=== PATIENT | male | born 1990 | race Caucasian/White ===

== ENCOUNTER 2020-07-22 00:40 | Emergency (ER) | payer SELFPAY ==
[2020-07-22 01:00] VITALS: BP 164/91; PULSE 96; RESP 16; TEMP 36.8; O2SAT 94; BMI 23.7
[2020-07-22] MEDS: lidocaine 1% INJ 20 mL 3 ML INTRADERMA (01:20)
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
[2020-07-22] MEDS: ibuprofen 800 mg tablet PO (01:45)
[2020-07-22 02:05] VITALS: BP 164/91; PULSE 94; RESP 16; O2SAT 96
--- NOTE | 2020-07-28 16:45 | PC.NURSE ---
Patient returned to ER to have sutures removed. 4 sutures removed from lac above right eyebrow.
== END 2020-07-22 02:05 | disposition home or self-care (01) ==
PROVIDERS: Emergency Provider Nurse Practitioner Family
DX: S01.81XA Laceration without foreign body of other part of head, initial encounter (principal); Y04.2XXA Assault by strike against or bumped into by another person, initial encounter
CPT/HCPCS: 12013; 12345; 99281; 99282

== ENCOUNTER 2021-10-28 23:51 | Emergency (ER) | payer SELFPAY ==
[2021-10-29] VITALS: BP 171/97; PULSE 110; RESP 18; TEMP 36.4; O2SAT 94; BMI 36.6
--- NOTE | 2021-10-29 00:11 | W.ED.GENADLT ---
HPI - General Adult General: Chief complaint: General Medical Stated complaint: Hernia-Belly Button Time Seen by Provider: 10/28/21 23:52 Source: patient Mode of arrival: ambulatory Limitations: no limitations History of Present Illness: 31-year-old male states that he has noticed a hernia in his umbilicus over the last 1 to 2 weeks. He states he went to get it checked out she had not noticed it before he denies any pain at the site he states he able to push it back in himself he has had no vomiting no diarrhea denies any fevers denies any injuries. Associated symptoms: Deny chest pain, dyspnea, headache(s), nausea, rash or vomiting Review of Systems Const: Denies: fever(s), chills, body aches or change in appetite Eyes: Denies: blurry vision or eye discomfort ENMT: Denies: throat pain or dental pain Card: Denies: chest pain Resp: Denies: dyspnea GI: Denies: abdominal pain, nausea, vomiting or diarrhea : Denies: dysuria Musc: Denies: neck pain or back pain Skin/Breast: Denies: rash Neuro: Denies: headache(s) Psych: Denies: depression Boy/Lymph: Denies: easy bruising All/Imm: Denies: urticaria PFSH ED PFSH: Medical History No pertinent past medical history Social History Smoking and tobacco status: current every day smoker Physical Exam Const: COMMON NORMALS: no acute distress, patient oriented x3 and healthy appearing HENMT: COMMON NORMALS: normocephalic and atraumatic HEAD & SCALP: normocephalic and atraumatic Eye: COMMON NORMALS: Equal, round and reactive pupils present and EOMs intact bilaterally PUPIL: Yes Equal, round and reactive pupils present Neck/C-Spine: COMMON NORMALS: full ROM and supple Chest: COMMONS NORMALS: normal inspection of the chest and normal palpation of entire chest wall Resp: COMMON NORMALS: normal respiratory effort, No retractions, No use of accessory muscles and clear to auscultation bilaterally AUSCULTATION: clear to auscultation bilaterally Cardio: COMMON NORMALS: regular rate, regular rhythm and No murmurs present (Cardio) RATE: regular rate RHYTHM: regular rhythm GI: COMMON NORMALS: Normal to inspection, nondistended, normoactive bowel sounds present, Soft to palpation, non-tender and no masses PALPATION: Yes Soft to palpation OTHER: Umbilical hernia is palpated to very easily reduced no tenderness on exam Extremity: COMMON NORMALS: normal to inspection and full ROM Neuro: COMMON NORMALS: patient oriented x3, moves all extremities and no focal motor deficits Psych: COMMON NORMALS: mental status grossly normal, Normal thought process present and cooperative THOUGHT PROCESS: Normal thought process present Skin: COMMON NORMALS: no rashes or lesions noted and no wounds GENERAL SKIN EXAM: no rashes or lesions noted Course Vital Signs: Vital signs: Vital Signs Temperature 97.6 F 10/29/21 00:00 Pulse Rate 110 H 10/29/21 00:00 Respiratory Rate 18 10/29/21 00:00 Blood Pressure 171/97 10/29/21 00:00 Pulse Oximetry 94 10/29/21 00:00 MDM - General Adult Medical Decision Making Patient presents with an umbilical hernia exam here is benign it is easily reduced no signs of strangulation he has had no pain he is stable for discharge we will get him follow-up with surgery he is return if worsening he understands agrees to plan. Discharge Plan Discharge Patient Disposition: Home Clinical Impression: Hernia, umbilical Condition: Stable Prescriptions: No Action No Known Home Medications 0RF methylprednisolone [Medrol (Wood)] 4 mg tablets,dose pack See Rx Instructions PO PER PKG DIR 5 Days Qty: 21 0RF Rx Instructions: PO PER PKG DIR triamcinolone acetonide 0.1 % cream 1 applic topical BID Qty: 80 0RF Discharge Orders: Discharge ED (Routine); Ordered 10/29/21 Ordered By: Jorge Roman Referrals: Joe Farmer MD [Physician] - 1-3 days Discharge Diet: Advance as tolerated Discharge Activity: Resume usual activity Patient Instructions: Umbilical Hernia (ED) Coding Level of Care Code ED Compound Coating Machine Offbearer for Severo Paredes
[2021-10-29 00:13] VITALS: PULSE 98; RESP 18; O2SAT 96
--- NOTE | 2021-10-31 13:52 | DCPLANNER ---
Addendum entered by Mayela Stokes 11/16/21 20:19: Patient had a follow up appointment scheduled with general surgery - patient did attend appointment. Addendum entered by Mayela Stokes 11/01/21 08:48: Patient has a follow up appointment scheduled for Thursday, November 11, 2021 at 8:[address] Farmer at general surgery. Clinic will call patient with appointment information. Original Note: manager steel had message to schedule a follow up appointment for patient with Dr. Farmer at General Surgery. manager steel sent patients information to the front office staff at general surgery. Patients information will be printed and reviewed. Clinic will call patient with appointment information.
== END 2021-10-29 00:25 | disposition home or self-care (01) ==
PROVIDERS: Emergency Provider Emergency Medicine
DX: K42.9 Umbilical hernia without obstruction or gangrene (principal); F17.200 Nicotine dependence, unspecified, uncomplicated
CPT/HCPCS: 99281

== ENCOUNTER 2021-11-23 20:46 | Emergency (ER) | payer SELFPAY ==
[2021-11-23] VITALS (7 sets, daily range): BP systolic 133–160; BP diastolic 86–106; PULSE 86–101; RESP 16–18; TEMP 36.7; O2SAT 92–97; BMI 31.2
--- NOTE | 2021-11-23 21:05 | ED_ITS ---
Documented by User: CHECO David 11/23/21 22:21 HPI - Abdominal Pain General: Chief Complaint: Abdominal Pain Stated Complaint: hernia pain Time Seen by Provider: 11/23/21 21:01 History of Present Illness: Patient is a 31-year-old male comes to the ED with umbilical abdominal pain. Patient has a umbilical hernia that has been going on now for several weeks. He was scheduled to have surgery to fix umbilical hernia on SundayNovember 21. He did not go to his surgery because he did not have insurance or money to pay for it. Today he woke up and he started having pain in his umbilical region for the first time. This is the first time he said he has had any pain with his umbilical hernia. He rates the pain a 10 out of 10. Denies any nausea or vomiting. Associated Symptoms: Denies chills, constipation, diarrhea, dysuria, fever(s), hematochezia, hematuria, nausea and vomiting Review of Systems Const: Denies: fever(s), chills or fatigue Eyes: Denies: change in vision or eye discomfort ENMT: Denies: throat pain, odynophagia, nasal discharge or nasal congestion Card: Denies: chest pain, palpitations, edema, swelling of feet/ankles, dyspnea on exertion or orthopnea Resp: Denies: dyspnea, productive cough or non-productive cough GI: Reports: abdominal pain (Umbilical hernia pain); Denies: nausea, vomiting, diarrhea, constipation or hematochezia : Denies: flank pain, difficulty urinating, dysuria or hematuria Musc: Denies: neck pain, back pain or extremity swelling Skin/Breast: Denies: rash or new lesions Neuro: Denies: headache(s), numbness in extremities or weakness in extremities [facility] ED PFSH: Medical History Pyloric stenosis, congenital Surgical History History of surgery pyloromyotomy Social History Smoking and tobacco status: current every day smoker Physical Exam Const: COMMON NORMALS: patient oriented x3 and alert GENERAL APPEARANCE: cooperative HENMT: COMMON NORMALS: normocephalic HEAD & SCALP: normocephalic MOUTH: Normal oral and palatal mucosa present THROAT: posterior oropharynx normal and uvula midline Neck/C-Spine: COMMON NORMALS: supple GENERAL: Yes normal visual inspection Resp: COMMON NORMALS: normal respiratory effort, No retractions, No use of accessory muscles and clear to auscultation bilaterally AUSCULTATION: clear to auscultation bilaterally Cardio: COMMON NORMALS: regular rate, regular rhythm, S1 normal heart sound present, S2 normal heart sound present, No gallops present (Cardio), No clicks present (Cardio), No murmurs present (Cardio) and Peripheral pulses 2+ throug hout RATE: regular rate RHYTHM: regular rhythm HEART SOUNDS: S1 normal heart sound present and S2 normal heart sound present PERIPHERAL PULSES: Peripheral pulses 2+ throughout GI: COMMON NORMALS: Normal to inspection, nondistended, normoactive bowel sounds present, Soft to palpation and no masses PALPATION: Yes Soft to palpation, Yes Tenderness to palpation present (GI) (Umbilical tenderness) and Yes Hernia present umbilical (Erythema and tenderness) : COMMON NORMALS: Yes no CVA tenderness BLADDER/KIDNEY EXAM: Yes no CVA t enderness Back/Pelvis: COMMON NORMALS: no CVA tenderness Extremity: COMMON NORMALS: normal to inspection Neuro: COMMON NORMALS: patient oriented x3 SENSORIUM/ORIENTATION: Yes alert GAIT: Yes Normal gait present Skin: GENERAL SKIN EXAM: dry skin Course Vital Signs: Vital signs: Vital Signs Temperature 98.1 F 11/23/21 20:56 Pulse Rate 96 11/23/21 20:56 Respiratory Rate 18 11/23/21 21:29 Blood Pressure 160/106 11/23/21 20:56 Pulse Oximetry 95 11/23/21 21:29 MDM - Abdominal Pain Medical Decision Making Patient is a 31-year-old male comes to the ED with umbilical hernia pain. Patient has had an umbilical hernia for several weeks now but today it started becoming painful. He was scheduled to have surgery to fix the umbilical hernia on Sunday, November 21 but he did not go since he did not have insurance or money to pay for it. Vitals are stable. Exam of patient shows an umbilical hernia that very tender upon palpation. Dr. Roman was evaluating patient with me as well and I ordered some IV pain meds and labs. Dr. Roman manually reduced hernia and patient was put in an abdominal binder. A order was placed with case management for patient be referred to general surgery. Patient was sent home with prescription for pain meds and nausea meds. He was stable for discharge home and given strict return to ED precautions. Lab Data I reviewed the patient's lab results. : 11/23/21 21:24 11/23/21 21:24 Labs/Radiology: Laboratory Results WBC 13.6 10^3/uL (4.0-10.0) H 11/23/21 21:24 RBC 5.97 10^6/uL (4.1-5.3) H 11/23/21 21:24 Hgb 16.6 g/dL (11.7-16.6) 11/23/21: Hct 52.6 % (42.0-52.0) H 11/23/21: MCV 88.1 fl (80-94) 11/23/21 21: MCH 27.8 pg (28.0-34.0) L 11/23/21: MCHC 31.6 g/dL (30.0-36.0) 11/23/21: RDW 14.1 % (12.1-15.1) 11/23/21: Plt Count 223 10^3/cmm (130-400) 11/23/21 21: MPV 11.8 fL (7.4-10.4) H 11/23/21 21:24 Neut % (Auto) 63.0 % 11/23/21 21: Lymph % (Auto) 23.4 % 11/23/21: [place] % (Auto) 8.3 % 11/23/21: Eos % (Auto) 4.2 % 11/23/21 21: Baso % (Auto) 0.7 % 11/23/21: Neut # (Auto) 8.58 10^3/uL (1.8-7.7) H 11/23/21: Lymph # (Auto) 3.2 10^3/uL (0.8-4.8) 11/23/21: [place] # (Auto) 1.1 10^3/uL (0.2-0.9) H 11/23/21 21:24 Eos # (Auto) 0.6 10^3/uL (0.0-0.8) 11/23/21 21:24 Baso # (Auto) 0.1 10^3/uL (0.0-0.1) 11/23/21 21:24 Nucleated RBC % (auto) 0 % 11/23/21 21:24 Nucleated RBCs # 0.0 /100WBC 11/23/21 21:24 Sodium Cancelled 11/23/21 21:24 Potassium Cancelled 11/23/21 21:24 Chloride Cancelled 11/23/21 21:24 Carbon Dioxide Cancelled 11/23/21 21:24 Anion Gap Cancelled 11/23/21 21:24 BUN Cancelled 11/23/21 21:24 Creatinine Cancelled 11/23/21 21:24 GFR Calculation Cancelled 11/23/21 21:24 Glucose Cancelled 11/23/21 21:24 Calculated Osmolality Cancelled 11/23/21 21:24 Calcium Cancelled 11/23/21 21:24 Total Bilirubin Cancelled 11/23/21 21:24 AST Cancelled 11/23/21 21:24 ALT Cancelled 11/23/21 21:24 Alkaline Phosphatase Cancelled 11/23/21 21:24 Total Protein Cancelled 11/23/21 21:24 Albumin Cancelled 11/23/21 21:24 Globulin Cancelled 11/23/21 21:24 Lipase Cancelled 11/23/21 21:24 Discharge Plan Discharge Patient Disposition: Home Clinical Impression: Umbilical hernia Qualifiers: Obstruction and gangrene presence: without obstruction or gangrene Qualified Code(s): K42.9 - Umbilical hernia without obstruction or gangrene Condition: Stable Prescriptions: New hydrocodone-acetaminophen 5-325 mg tablet 1 tab PO Q6H PRN (Reason: pain) Qty: 14 0RF ondansetron 4 mg tablet,disintegrating 4 mg PO Q6H PRN (Reason: nausea and vomiting) Qty: 14 0RF No Action methylprednisolone [Medrol (Wood)] 4 mg tablets,dose pack See Rx Instructions PO PER PKG DIR 5 Days Qty: 21 0RF Rx Instructions: PO PER PKG DIR triamcinolone acetonide 0.1 % cream 1 applic topical BID Qty: 80 0RF Discharge Orders: Discharge ED (Routine); Ordered 11/23/21 Ordered By: Jorge Roman Discharge Diet: Advance as tolerated Discharge Activity: Resume usual activity Patient Instructions: Umbilical Hernia (ED), Opioid Safety Coding Level of Care Code ED Advisor Advocate Angel Co Founder for Severo Fwflorentino Exam Comprehensive Documented by User: Jorge Roman MD 11/23/21 22:24 HPI - Abdominal Pain General: Chief Complaint: Abdominal Pain Stated Complaint: hernia pain Time Seen by Provider: 11/23/21 21:01 [facility] ED PFSH: Medical History Pyloric stenosis, congenital Surgical History History of surgery pyloromyotomy Social History Smoking and tobacco status: current every day smoker Course Vital Signs: Vital signs: Vital Signs Temperature 98.1 F 11/23/21 20:56 Pulse Rate 96 11/23/21 20:56 Respiratory Rate 18 11/23/21 21:29 Blood Pressure 160/106 11/23/21 20:56 Pulse Oximetry 95 11/23/21 21:29 MDM - Abdominal Pain Medical Decision Making Patient is a 31-year-old male comes to the ED with umbilical hernia pain. Patient has had an umbilical hernia for several weeks now but today it started becoming painful. He was scheduled to have surgery to fix the umbilical hernia on Sunday, November 21 but he did not go since he did not have insurance or money to pay for it. Vitals are stable. Exam of patient shows an umbilical hernia that very tender upon palpation. Dr. Roman was evaluating patient with me as well and I ordered some IV pain meds and labs. Dr. Roman manually reduced hernia and patient was put in an abdominal binder. A order was placed with case management for patient be referred to general surgery. Patient was sent home with prescription for pain meds and nausea meds. He was stable for discharge home and given strict return to ED precautions. I saw patient with above midlevel his umbilical hernia was easily reduced he stable for discharge and is to follow back up with Dr. Farmer. Lab Data : 11/23/21 21:24 11/23/21 21:24 Labs/Radiology: Laboratory Results WBC 13.6 10^3/uL (4.0-10.0) H 11/23/21 21:24 RBC 5.97 10^6/uL (4.1-5.3) H 11/23/21 21:24 Hgb 16.6 g/dL (11.7-16.6) 11/23/21 21:24 Hct 52.6 % (42.0-52.0) H 11/23/21 21:24 MCV 88.1 fl (80-94) 11/23/21 21:24 MCH 27.8 pg (28.0-34.0) L 11/23/21 21:24 MCHC 31.6 g/dL (30.0-36.0) 11/23/21 21:24 RDW 14.1 % (12.1-15.1) 11/23/21 21:24 Plt Count 223 10^3/cmm (130-400) 11/23/21 21:24 MPV 11.8 fL (7.4-10.4) H 11/23/21 21:24 Neut % (Auto) 63.0 % 11/23/21 21:24 Lymph % (Auto) 23.4 % 11/23/21 21:24 [place] % (Auto) 8.3 % 11/23/21 21:24 Eos % (Auto) 4.2 % 11/23/21 21:24 Baso % (Auto) 0.7 % 11/23/21 21:24 Neut # (Auto) 8.58 10^3/uL (1.8-7.7) H 11/23/21 21:24 Lymph # (Auto) 3.2 10^3/uL (0.8-4.8) 11/23/21 21:24 [place] # (Auto) 1.1 10^3/uL (0.2-0.9) H 11/23/21 21:24 Eos # (Auto) 0.6 10^3/uL (0.0-0.8) 11/23/21 21:24 Baso # (Auto) 0.1 10^3/uL (0.0-0.1) 11/23/21 21:24 Nucleated RBC % (auto) 0 % 11/23/21 21:24 Nucleated RBCs # 0.0 /100WBC 11/23/21 21:24 Sodium Cancelled 11/23/21 21:24 Potassium Cancelled 11/23/21 21:24 Chloride Cancelled 11/23/21 21:24 Carbon Dioxide Cancelled 11/23/21 21:24 Anion Gap Cancelled 11/23/21 21:24 BUN Cancelled 11/23/21 21:24 Creatinine Cancelled 11/23/21 21:24 GFR Calculation Cancelled 11/23/21 21:24 Glucose Cancelled 11/23/21 21:24 Calculated Osmolality Cancelled 11/23/21 21:24 Calcium Cancelled 11/23/21 21:24 Total Bilirubin Cancelled 11/23/21 21:24 AST Cancelled 11/23/21 21:24 ALT Cancelled 11/23/21 21:24 Alkaline Phosphatase Cancelled 11/23/21 21:24 Total Protein Cancelled 11/23/21 21:24 Albumin Cancelled 11/23/21 21:24 Globulin Cancelled 11/23/21 21:24 Lipase Cancelled 11/23/21 21:24 Discharge Plan Discharge Patient Disposition: Home Clinical Impression: Umbilical hernia Qualifiers: Obstruction and gangrene presence: without obstruction or gangrene Qualified Code(s): K42.9 - Umbilical hernia without obstruction or gangrene Condition: Stable Prescriptions: New hydrocodone-acetaminophen 5-325 mg tablet 1 tab PO Q6H PRN (Reason: pain) Qty: 14 0RF ondansetron 4 mg tablet,disintegrating 4 mg PO Q6H PRN (Reason: nausea and vomiting) Qty: 14 0RF No Action methylprednisolone [Medrol (Wood)] 4 mg tablets,dose pack See Rx Instructions PO PER PKG DIR 5 Days Qty: 21 0RF Rx Instructions: PO PER PKG DIR triamcinolone acetonide 0.1 % cream 1 applic topical BID Qty: 80 0RF Discharge Orders: Discharge ED (Routine); Ordered 11/23/21 Ordered By: Jorge Roman Discharge Diet: Advance as tolerated Discharge Activity: Resume usual activity Patient Instructions: Umbilical Hernia (ED), Opioid Safety Coding Level of Care Code ED Advisor Advocate Angel Co Founder for Chg Fwd Exam Comprehensive
[2021-11-23 21:28] LABS: Basophils # 0.1 10^3/uL (0.0-0.1); Basophils % 0.7 %; Eosinophils # 0.6 10^3/uL (0.0-0.8); Eosinophils % 4.2 %; Hematocrit 52.6 % (42.0-52.0); Hemoglobin 16.6 g/dL (11.7-16.6); Lymphocytes # 3.2 10^3/uL (0.8-4.8); Lymphocytes % 23.4 %; Mean Corpuscular HGB Conc 31.6 g/dL (30.0-36.0); Mean Corpuscular Hemoglobin 27.8 pg (28.0-34.0); Mean Corpuscular Volume 88.1 fl (80-94); Mean Platelet Volume 11.8 fL (7.4-10.4); Monocytes # 1.1 10^3/uL (0.2-0.9); Monocytes % 8.3 %; Neutrophils # 8.58 10^3/uL (1.8-7.7); Nucleated Red Blood Cells % 0 %; Platelet Count 223 10^3/cmm (130-400); Red Blood Count 5.97 10^6/uL (4.1-5.3); Red Cell Distribution Width 14.1 % (12.1-15.1); White Blood Count 13.6 10^3/uL (4.0-10.0)
[2021-11-23] MEDS: LORazepam 2 mg/mL INJ 1 mL IVP (21:29)
[2021-11-23] MEDS: HYDROmorphone 1 mg/mL INJ 1 mL IVP (21:29)
--- NOTE | 2021-11-23 22:28 | PC.NURSE ---
Abd binder applied as ordered
[2021-11-23 23:20] LABS: Alanine Aminotransferase 43 U/L (0-41); Alkaline Phosphatase 113 IU/L (40-130); Anion Gap 13.1 (5-19); Aspartate Amino Transferase 26 U/L (0-40); Blood Urea Nitrogen 21 mg/dL (6-20); Carbon Dioxide 26 mmol/L (22-29); Chloride 104 mmol/L (98-107); Globulin 2.9 g/dL (1.3-4.6); Glomerular Filtration Rate 77.1 mL/min (90-130); Glucose 103 mg/dL (65-115); Osmolality Calculated 291 mOsm/kg (285-295); Potassium 4.1 mmol/L (3.5-5.1); Sodium 139 mmol/L (136-145); Thyroid Stimulating Hormone 2.07 uIU/mL (0.27-4.20); Total Bilirubin 0.2 mg/dL (0.15-1.2); Total Protein 6.9 g/dL (6.6-8.7)
--- NOTE | 2021-11-24 12:28 | DCPLANNER ---
Addendum entered by Mayela Stokes 12/01/21 15:48: client portfolio manager received the following message from general surgery regarding follow up appointment. Patient was seen With Dr. Boogie 11/11 for Hernia. We plan to do Umbical hernia repair however patient has to follow up with Financial assistance. I believe they tried to get ahold of him and are awaiting his call. We sent message to FA to follow up on this as well. Thank you Original Note: client portfolio manager had message to schedule a follow up appointment for patient with general surgery. client portfolio manager sent patients information to the front office staff at general surgery. Patients information will be printed and reviewed. Clinic will call patient with appointment information.
== END 2021-11-23 23:15 | disposition home or self-care (01) ==
PROVIDERS: Emergency Provider Physician Assistant
DX: K42.9 Umbilical hernia without obstruction or gangrene (principal); F17.200 Nicotine dependence, unspecified, uncomplicated
CPT/HCPCS: 80053; 84443; 85025; 96374; 96375; 99284; J1170; J2060

== ENCOUNTER 2022-01-05 06:42 | Day surgery (SDC) | payer MEDICAID, SELFPAY ==
[2021-12-30 09:32] VITALS: BMI 31.3
--- NOTE | 2022-01-02 08:24 | P.ANESASSM_ITS ---
Pre-Anesthetic Assessment Height/Weight: Height 1.83 m Weight 104.78 kg Operation Date: 01/02/22 08:10 Proposed Procedures p Umbilical Hernia Repair(Not Applicable) - Joe Farmer MD GI Umbilical hernia Hx of pyloric stenosis Medications/Allergies Home Medications Medication Instructions Recorded Confirmed Last Taken Type No Known Home Medications 12/30/21 12/30/21 Unknown History Allergies Allergy/AdvReac Type Severity Reaction Status Date / Time No Known Allergies Allergy Verified 12/30/21 09:25 [facility] Anesthesia Medical History Pyloric stenosis, congenital Surgical History History of surgery pyloromyotomy Social History Smoking and tobacco status: current every day smoker Data Anesthesia Cardiac Studies: No Data to Display
[2022-01-05] VITALS (17 sets, daily range): BP systolic 102–144; BP diastolic 59–90; PULSE 68–93; RESP 16–22; TEMP 36.2–36.5; O2SAT 91–98
--- NOTE | 2022-01-05 07:11 | W.PM.OPSFHP ---
Same Day Surgery H&P Indication for Procedure/HPI DATE OF PROCEDURE: January 05, 2022 CHIEF COMPLAINT/INDICATIONFOR SURGICAL PROCEDURE: umbilical hernia repair PREOP DIAGNOSIS: Umbilical hernia PLANNED PROCEDURE: Operation Date: 01/05/22 08:25 Proposed Procedures p Umbilical Hernia Repair(Not Applicable) - Joe Farmer MD Medications/Allergies* Home Medications Medication Instructions Recorded Confirmed Type No Known Home Medications 12/30/21 12/30/21 History Allergies/Adverse Reactions Allergy/AdvReac Type Severity Reaction Status Date / Time No Known Allergies Allergy Verified 01/05/22 07:07 Pertinent History/Comorbid Conditions* Medical History (Updated 11/23/21 @ 21:42 by Jorge Roman MD) Pyloric stenosis, congenital Surgical History (Updated 11/11/21 @ 08:47 by Joe Farmer MD) History of surgery pyloromyotomy Social History Smoking and tobacco status: current every day smoker Pertinent Exam Findings alert, oriented x 3 and regular rate & rhythm Recommendations Surgery/Procedure today Coding Level of Care Code Acute International Project Engineer for Severo Paredes
[2022-01-05] MEDS: sodium chloride 0.9% 1,000 ML 30 ML IV (07:25)
--- NOTE | 2022-01-05 07:41 | ANES.PREANE2 ---
Pre-Anesthetic Assessment Height/Weight: Height 1.83 m Weight 104.78 kg Temp Pulse Resp BP Pulse Ox 97.3 F L 93 18 144/90 97 01/05/22 07:07 01/05/22 07:07 01/05/22 07:07 01/05/22 07:07 01/05/22 07:07 Preop Diagnosis: Umbilical hernia Operation Date: 01/05/22 08:25 Proposed Procedures p Umbilical Hernia Repair(Not Applicable) - Joe Farmer MD Familial anesthetic complications: None Was Beta Jose taken within 24 hours: N/A Was Clonidine taken within 24 hours: N/A Last intake: Intake Last Liquid Date 01/04/22 Last Liquid Time 20:30 Last Solid Date 01/04/22 Last Solid Time 20:30 Social Tobacco and No alcohol Exam alert, oriented x 3 and regular rate & rhythm Airway Submandibular: within normal limits Cervical ROM: within normal limits Mallampati: Class II Dentition: chipped Pulmonary Chronic Obstructive Pulmonary Disease Metabolic Morbid Obesity Anesthetic Plan ASA status: 2 Anesthesia: General Medications/Allergies Home Medications Medication Instructions Recorded Confirmed Last Taken Type No Known Home Medications 12/30/21 12/30/21 Unknown History Allergies Allergy/AdvReac Type Severity Reaction Status Date / Time No Known Allergies Allergy Verified 01/05/22 07:07 Current Medications Generic Name Dose Route Start Last Admin Trade Name Freq PRN Reason Stop Dose Admin Sodium Chloride 1,000 mls @ 30 mls/hr 01/05/22 07:00 01/05/22 07:25 Sodium Chloride 0.9% IV 01/06/22 06:59 30 mls/hr .Q24H ERICK Administration PFSH Anesthesia Medical History Pyloric stenosis, congenital Surgical History History of surgery pyloromyotomy Social History Smoking and tobacco status: current every day smoker Data Anesthesia Cardiac Studies: No Data to Display
--- NOTE | 2022-01-05 08:54 | PM.OP ---
Operative Report Date of procedure: January 05, 2022 Pre-op diagnosis: Incarcerated umbilical hernia Post-op diagnosis: Incarcerated umbilical hernia containing omentum Procedure done: Open primary repair of incarcerated umbilical hernia measuring 2 cm Pathology: none sent Surgeon: Joe Farmer Anesthesia: General Condition: stable Disposition: PACU Procedure: The patient was taken to the operating room and intubated under general anesthesia after IV antibiotic had been administered. The abdomen was prepped and draped in a sterile manner. A 2 cm infraumbilical curvilinear incision was made using a 15 blade, hernia sac was dissected free using electrocautery and hemostats. The hernial sac was excised and omentum was reduced into the peritoneal cavity. Interrupted sutures using 0 Vicryl was used to close the hernia defect without any tension. The subcutaneous tissue was approximated using 3-0 Vicryl and skin was closed using running subcuticular 4-0 Monocryl sutures. Surgical glue was applied and 10 mL of 0.5% Marcaine was infiltrated around the incision. A 2 x 2 gauze was then placed within the umbilicus and sterile dressings are applied. The patient was extubated and transferred to recovery room in stable condition.
[2022-01-05] MEDS: fentaNYL 50 mcg/mL INJ 2mL IVP ×2 (09:05→09:16)
[2022-01-05] MEDS: HYDROmorphone 1 mg/mL INJ 1 mL 0.5 MG IVP ×2 (09:25→09:35)
[2022-01-05] MEDS: HYDROcodone-acetaminophen 5-325 mg Tablet 1 TAB PO (10:10)
--- NOTE | 2022-01-05 15:01 | ANE.PACU2 ---
Inpatient post-anesthesia follow up: Airway intact: Yes Vital signs: Temperature 97.7 F Pulse Rate 68 Respiratory Rate 18 Blood Pressure 124/80 Pulse Oximetry 95 Oxygen Delivery Me thod Room Air Oxygen Flow Rate 3 Fraction of Inspir ed Oxygen Hydration adequate: Yes Nausea and vomiting: No Pain level: 3 Mental status: Baseline
== END 2022-01-05 10:36 | disposition home or self-care (01) ==
PROVIDERS: Visit Provider Surgery
PROC: (CPT 49587; principal; 2022-01-05 08:15)
DX: K42.0 Umbilical hernia with obstruction, without gangrene (principal); J44.9 Chronic obstructive pulmonary disease, unspecified; E66.01 Morbid (severe) obesity due to excess calories; Z68.31 Body mass index [BMI] 31.0-31.9, adult; F17.210 Nicotine dependence, cigarettes, uncomplicated
CPT/HCPCS: 49587; J1100; J1170; J2250; J2405; J2704; J2710; J3010; J3490; J7030

== ENCOUNTER 2022-01-07 05:53 | Emergency (ER) | payer MEDICAID, SELFPAY ==
[2022-01-07 06:09] VITALS: BP 144/98; PULSE 95; RESP 18; TEMP 36.6; O2SAT 96; BMI 29.1
[2022-01-07 06:15] VITALS: BP 150/103; PULSE 92; RESP 20; O2SAT 93
--- NOTE | 2022-01-07 06:17 | W.ED.ABDPA2 ---
HPI - Abdominal Pain General: Chief Complaint: Abdominal Pain Stated Complaint: Can't go to bathroom post hernia surgery Time Seen by Provider: 01/07/22 05:57 History of Present Illness: Mr. Andrew is a 31-year-old gentleman presenting on supportive day 2 after umbilical hernia repair. He presents today with generalized malaise and abdominal pain. He feels that he has had poor p.o. intake. He has been trying stool softener and home analgesia only mild relief of symptoms. He is having a small amount of flatus but has not had bowel movement. He has had decreased p.o. intake. Denies fevers or chills. Overall course has persisted. Intensity is moderate. No other specific changes in health, exacerbating, or alleviating factors identified. Onset (ago): hour(s) Pain Consistency: constant Location: Periumbilical Severity: moderate Associated Symptoms: Reports nausea and poor appetite Review of Systems General: Reports: 10 or more systems reviewed and unremarkable except in HPI and below GI: Reports: nausea PFSH ED PFSH: Medical History Pyloric stenosis, congenital Surgical History History of surgery pyloromyotomy History of umbilical hernia repair (01/05/22) Social History Smoking and tobacco status: current every day smoker Physical Exam Const: COMMON NORMALS: alert GENERAL APPEARANCE: cooperative, well developed and ill appearing (mildly) HENMT: COMMON NORMALS: normocephalic and atraumatic HEAD & SCALP: normocephalic and atraumatic Eye: COMMON NORMALS: conjunctivae normal CONJUNCTIVA: Yes conjunctivae normal SCLERA: sclerae normal Neck/C-Spine: COMMON NORMALS: supple GENERAL: Yes trachea midline Resp: COMMON NORMALS: normal respiratory effort EFFORT & INSPECTION: Yes able to speak in complete sentences Cardio: COMMON NORMALS: regular rate and regular rhythm RATE: regular rate RHYTHM: regular rhythm GI: COMMON NORMALS: Soft to palpation PALPATION: Yes Soft to palpation, Yes Tenderness to palpation present (GI), No Guarding due to palpation present (GI) and No Rigid due to palpation OTHER: No evidence of dehiscence or infection at surgical sites Extremity: GENERAL: Yes normal exam except as noted and No edema Neuro: COMMON NORMALS: moves all extremities SENSORIUM/ORIENTATION: Yes alert and No Orientation impaired Psych: COMMON NORMALS: mental status grossly normal and Normal thought process present THOUGHT PROCESS: Normal thought process present Course ED course: - Patient was seen and evaluated by me at bedside - Patient placed on cardiac monitors, IV access obtained - Initial evaluation notable for exam as above [- Fluids, analgesia, and antiemetic given] - Imaging notable for constipation on x-ray. CT with air infiltration of the subcutaneous fat and abdominal wall as well as small foci in the anterior peritoneal cavity. Discussed with patient surgeon reports this is within expected limits. Plan to increase bowel regimen. Renal lesion discussed with patient including need for outpatient ultrasound. - Upon serial reexamination after treatment the patient was improved, he clinically appeared much better - Based on patient history, evaluation, and testing as interpreted the most likely cause of the patient's condition is postoperative constipation/pain - The results of ED evaluation were discussed with the patient including prescriptions and/or symptomatic cares (if applicable) including appropriate and responsible use, followup plan, and return precautions. The patient verbalized understanding and felt safe for discharge. - Patient discharged in satisfactory condition. Note: Click bubbles or prepopulated nelson in note writing are used for assistance with data collection and billing and are inherently more limited than narrative and other text portions of this note. Please use narrative for additional clinical history and defer to narrative/free test for any case of contradictory information. If information appears in only free text or click bubble it should be considered present or absent as reported. Please contact note marine underwriter for clarifications of clinical information or contradictory information. MDM is a brief summary, contradictory or erroneous seeming information should be clarified and full note should be reviewed. Vital Signs: Vital signs: Vital Signs Temperature 97.9 F 01/07/22 06:09 Pulse Rate 83 01/07/22 10:48 Respiratory Rate 17 01/07/22 10:48 Blood Pressure 143/90 01/07/22 10:48 Pulse Oximetry 91 01/07/22 10:48 MDM - Abdominal Pain Medical Decision Making 31-year-old gentleman postop day 2 from umbilical hernia repair presenting with constipation and abdominal pain. Improved with symptom treatment. Discussed with patient surgeon after imaging. Plan to increase bowel regimen. Satisfactory for continued outpatient management. Medical Records I reviewed the patient's medical records. Lab Data I reviewed the patient's lab results. Labs/Radiology: Radiology Impressions Abdomen X-Ray 01/07/22 06:23 IMPRESSION: Colonic dilatation and prominent stool, in the setting of reported constipation. Abdomen/Pelvis CT 01/07/22 07:21 IMPRESSION: 1. Prominent infiltration of subcutaneous fat in the anterior abdominal wall midline with extension into the adjacent anterior peritoneal cavity with small foci of extraluminal air. Additional poorly defined 2.1 cm air-fluid level in the umbilical region. 2. 1.4 cm nodular hypodense lesion arising from the superior-posterior right kidney which does not fulfill CT criteria for a simple cyst. 1 mm nonobstructing right renal calculus. 3. Additional findings as described above. The aforementioned findings initiated a critical results communication pathway. An addendum will be issued at the time of clincian notification. ADDENDUM: 01/07/22 0857 THIS REPORT CONTAINS FINDINGS THAT MAY BE CRITICAL TO PATIENT CARE. The findings were verbally communicated via telephone conference with Raudel Snyder at 8:55 AM CDT on 01/07/2022. The findings were acknowledged and understood. Discharge Plan Discharge Patient Disposition: Home Clinical Impression: Constipation, Abdominal pain Condition: Stable Prescriptions: No Action No Known Home Medications 0RF Discharge Orders: Discharge ED (Routine); Ordered 01/07/22 Ordered By: Raudel Donald Discharge Diet: Advance as tolerated and Clear Liquid Discharge Activity: Increase activity as tolerated Patient Instructions: Constipation (ED), Abdominal Pain (ED), Opioid Safety Activity Restrictions/Additional Instructions: Thank you for visiting the emergency department. You were seen and evaluated for abdominal pain and constipation. I believe that the constipation is the explanation for your discomfort. I recommend continuing all instructions given to you by your operating surgeon. Additionally please begin to take MiraLAX 3 times daily for the next 3 days and then titrate as needed for soft stools. Please follow-up with your primary care provider and operating surgeon, please call Dr. Farmer's office on Sunday. Please return to the emergency department for worsening symptoms, uncontrolled pain, or anything else that you are concerned about and feel needs emergency department evaluation. Coding Level of Care Code ED Bobbin Doffer for Severo Paredes
--- NOTE | 2022-01-07 06:23 | XRR_ITS ---
PROCEDURE INFORMATION: Exam: XR Abdomen Exam date and time: 01/07/2022 6:42 AM Age: 31 years old Clinical indication: Constipation; Prior surgery; Surgery date: Post-operative (0-2 days); Additional info: Post op constipation TECHNIQUE: Imaging protocol: Radiologic exam of the abdomen. Views: Frontal supine view of the abdomen. 1 View. COMPARISON: CT Abdomen/Pelvis Renal [id number] 09/28/2015 12:14 PM FINDINGS: Gastrointestinal tract: Colonic dilatation and prominent stool, in the setting of reported constipation. Mild small bowel dilatation. Vasculature: Subcentimeter pelvic calcifications, presumably vascular in etiology. Bones/joints: Unremarkable. XR/XR abdomen 1V* [id number] IMPRESSION: Colonic dilatation and prominent stool, in the setting of reported constipation.
[2022-01-07 07:14] VITALS: BP 140/97; PULSE 86; RESP 20; O2SAT 93
[2022-01-07] MEDS: sodium chloride 0.9% 1,000 ML 999 ML IV (07:16)
--- NOTE | 2022-01-07 07:21 | CTR_ITS ---
PROCEDURE INFORMATION: Exam: CT Abdomen And Pelvis Without Contrast Exam date and time: 01/07/2022 7:59 AM Age: 31 years old Clinical indication: Abdominal tenderness; Prior surgery; Surgery date: 3-7 days post-operative; Surgery type: Hernia repair; Additional info: Pod2 hernia repair, constipation TECHNIQUE: Imaging protocol: Computed tomography of the abdomen and pelvis without contrast. Radiation optimization: All CT scans at this facility use at least one of these dose optimization techniques: automated exposure control; mA and/or kV adjustment per patient size (includes targeted exams where dose is matched to clinical indication); or iterative reconstruction. COMPARISON: CT Abdomen/Pelvis Renal [id number] 09/28/2015 12:14 PM RADIATION DOSE METRICS: Total DLP (mGy-cm): 1962.05 FINDINGS: Detailed evaluation of the abdominal and pelvic viscera is somewhat limited in the absence of intravenous contrast. Lungs: Interstitial prominence and asymmetric bibasilar airspace disease, left greater than right. Liver: Fatty infiltration of the liver. Gallbladder and bile ducts: Unremarkable gallbladder. Pancreas: No pancreatic mass or ductal dilatation. Spleen: Spleen upper limits of normal size. Adrenal glands: Unremarkable adrenals. Kidneys and ureters: 1.4 cm nodular hypodense lesion arising from the superior-posterior right kidney which does not fulfill CT criteria for a simple cyst. 1 mm nonobstructing right renal calculus. Stomach and bowel: Questionable wall thickening in the nondistended stomach. Mild small bowel dilatation without a transition zone. Colonic dilatation and prominent stool, in the setting of reported constipation. Appendix: No acute appendicitis. Intraperitoneal space: No significant free fluid. Vasculature: Normal caliber of the abdominal aorta. Lymph nodes: Subcentimeter lymph nodes. Urinary bladder: Normal bladder morphology. Reproductive: Prostate calcifications. Bones/joints: Transitional vertebra at the lumbosacral junction. Mild multilevel vertebral endplate depression. Marginal osteophytes. Soft tissues: Small fat containing inguinal hernias. Prominent infiltration of subcutaneous fat in the anterior abdominal wall midline with extension into the adjacent anterior peritoneal cavity with small foci of extraluminal air. Additional poorly defined 2.1 cm air-fluid level in the umbilical region, along with mild skin thickening. CT/CT abdomen pelvis wo con [id number] IMPRESSION: 1. Prominent infiltration of subcutaneous fat in the anterior abdominal wall midline with extension into the adjacent anterior peritoneal cavity with small foci of extraluminal air. Additional poorly defined 2.1 cm air-fluid level in the umbilical region. 2. 1.4 cm nodular hypodense lesion arising from the superior-posterior right kidney which does not fulfill CT criteria for a simple cyst. 1 mm nonobstructing right renal calculus. 3. Additional findings as described above. The aforementioned findings initiated a critical results communication pathway. An addendum will be issued at the time of clincian notification.
--- NOTE | 2022-01-07 08:33 | PC.NURSE ---
Shift report received from BRODY Mora. Pt resting in bed. continuous cardiac, bp, SpO2 monitoring in place and continued.
[2022-01-07 08:35] VITALS: BP 141/95; PULSE 92; RESP 14; O2SAT 93
[2022-01-07] MEDS: polyethylene glycol 3350 Pkt 17 gm PO (09:55)
[2022-01-07] MEDS: metoclopramide 5 mg/mL SDV 2 mL 10 MG IVP (10:06)
--- NOTE | 2022-01-07 10:14 | PC.NURSE ---
Pt IV came out. Pt refused another IV after attempt to insert failed.
[2022-01-07] MEDS: HYDROcodone-acetaminophen 5-325 mg Tablet 1 TAB PO (10:44)
[2022-01-07 10:48] VITALS: BP 143/90; PULSE 83; RESP 17; O2SAT 91
== END 2022-01-07 10:47 | disposition home or self-care (01) ==
PROVIDERS: Emergency Provider Emergency Medicine
DX: K59.00 Constipation, unspecified (principal); Z98.890 Other specified postprocedural states
CPT/HCPCS: 74018; 74176; 96361; 96374; 99284; J2765; J7030